=== PATIENT | male | born 1975 | race Caucasian/White ===

== ENCOUNTER 2022-01-03 11:37 | Emergency (ER) | payer OTHER ==
[2022-01-03 11:50] VITALS: BP 125/83; PULSE 73; RESP 18; TEMP 98
--- NOTE | 2022-01-03 12:14 | ED ---
General Adult HPI - General Chief complaint: Recheck/Abnormal Lab/Rx Stated complaint: visual disturbance Time Seen by Provider: 01/03/22 12:00 Source: patient, EMS Mode of arrival: EMS Limitations: no limitations - History of Present Illness Initial comments: 46-year-old male presents emergency department from [facility]. States that he was in class today when he began having tunnel vision and flashes of light. States that he was not distressed by the episode because he has had this happen to him multiple times before. He had a mild associated headache. States it is very agitated by the people around him as they were talking and he was trying to focus. He denies any speech deficit. No unilateral numbness or weakness in his body. No history of strokes. States that it has happened to him several times over his lifetime and will spontaneously resolve. States it only lasted approximately 20 minutes. He did not want to be transferred to the hospital however [facility] made him. He arrives and states that his symptoms are completely resolved at this time. Patient requesting discharge back. Review of Systems ROS Statement: Those systems with pertinent positive or pertinent negative responses have been documented in the HPI. ROS Other: All systems not noted in ROS Statement are negative. Past Medical History Past Medical History: No Reported History History of Any Multi-Drug Resistant Organisms: None Reported Past Surgical History: No Surgical Hx Reported Past Psychological History: Anxiety, Depression Smoking Status: Current every day smoker Past Alcohol Use History: Abuse, Daily Past Drug Use History: Marijuana, Methamphetamine General Exam Limitations: no limitations General appearance: alert, in no apparent distress Head exam: Present: atraumatic, normocephalic, normal inspection Eye exam: Present: normal appearance, PERRL, EOMI. Absent: scleral icterus, conjunctival injection, periorbital swelling ENT exam: Present: normal exam, mucous membranes moist Neck exam: Present: normal inspection. Absent: tenderness, meningismus, lymphadenopathy Respiratory exam: Present: normal lung sounds bilaterally. Absent: respiratory distress, wheezes, rales, rhonchi, stridor Cardiovascular Exam: Present: regular rate, normal rhythm, normal heart sounds. Absent: systolic murmur, diastolic murmur, rubs, gallop, clicks GI/Abdominal exam: Present: soft, normal bowel sounds. Absent: distended, tenderness, guarding, rebound, rigid Extremities exam: Present: normal inspection, full ROM, normal capillary refill. Absent: tenderness, pedal edema, joint swelling, calf tenderness Back exam: Present: normal inspection Neurological exam: Present: alert, oriented X3, CN II-XII intact Psychiatric exam: Present: normal affect, normal mood Skin exam: Present: warm, dry, intact, normal color. Absent: rash Course Vital Signs 01/03/22 11:44 Temperature 98.0 F Pulse Rate 73 Respiratory 18 Rate Blood Pressure 125/83 O2 Sat by Pulse 95 Oximetry Medical Decision Making - Medical Decision Making Upon arrival patient is placed in room 23. There are history and physical exam was performed. NIH is assessed and is 0. Patient has no symptoms at this time. I did recommend laboratory studies and imaging the patient's brain. He refused stating that he has had this several times before in his life time and is not concerning to him. He is awake, alert and capable is making his own decisions. Patient wants to be discharged back to [facility]. He is to follow-up with his primary care doctor in regards to symptoms return for any new or worsening symptoms. Patient agreeable and discharged home in stable condition Disposition Clinical Impression: Visual disturbance Disposition: HOME SELF-CARE Condition: Stable Instructions (If sedation given, give patient instructions): Visual Floaters (ED) Additional Instructions: Please follow-up with your primary care doctor for further evaluation of these symptoms. Please return for any new or worsening symptoms Is patient prescribed a controlled substance at d/c from ED?: No Referrals: None,Stated [Primary Care Provider] - 1-2 days Time of Disposition: 12:14
== END 2022-01-03 12:28 | disposition home or self-care (01) ==
LOC: EC 11:37
DX: H53.9 Unspecified visual disturbance (principal); F41.9 Anxiety disorder, unspecified; F32.A Depression, unspecified; F17.200 Nicotine dependence, unspecified, uncomplicated; F12.90 Cannabis use, unspecified, uncomplicated
CPT/HCPCS: 99284

== ENCOUNTER 2024-02-20 17:17 | Observation (INO) | payer OTHER ==
--- NOTE | 2024-02-20 17:26 | ED ---
Seizure HPI - General Chief Complaint: Seizure Stated Complaint: Seizure Time Seen by Provider: 02/20/24 17:23 Source: patient, RN notes reviewed, old records reviewed Mode of arrival: EMS Limitations: no limitations - History of Present Illness Initial Comments: This is a 48-year-old male to the ER for evaluation patient presents today for withdrawal seizures alcohol withdrawal medication withdrawal patient presents from [place] for seizure activity 2 minutes of his seizure with history of alcohol withdrawal seizures. MD Complaint: seizure, possible seizure -: days(s) Description of Episode: loss of consciousness, tonic-clonic movement -: second(s) Witnessed: yes - by bystander Trauma: Yes Seizure History: none Place: home Possible Precipitating Event: none Associated Symptoms: denies other symptoms - Related Data Home Medications Medication Instructions Recorded Confirmed Acetaminophen Tab [Tylenol] 1,000 mg PO BID 02/20/24 02/20/24 Mirtazapine [Remeron] 15 mg PO HS 02/20/24 02/20/24 Thiamine [Vitamin B-1] 100 mg PO DAILY 02/20/24 02/20/24 busPIRone HCL [Buspar] 30 mg PO HS 02/20/24 02/20/24 cloNIDine HCL [Catapres] 0.1 mg PO BID 02/20/24 02/20/24 Previous Rx's Medication Instructions Recorded Ibuprofen [Motrin] 800 mg PO BID PRN 3 Days #0 02/21/24 levETIRAcetam [Keppra] 500 mg PO Q12HR #60 tab 02/21/24 Allergies Allergy/AdvReac Type Severity Reaction Status Date / Time No Known Allergies Allergy Verified 02/20/24 17:25 Review of Systems ROS Statement: Those systems with pertinent positive or pertinent negative responses have been documented in the HPI. ROS Other: All systems not noted in ROS Statement are negative. Past Medical History Past Medical History: Seizure Disorder Additional Past Medical History / Comment(s): detoxing seizures History of Any Multi-Drug Resistant Organisms: None Reported Past Surgical History: No Surgical Hx Reported Past Psychological History: Anxiety, Depression Smoking Status: Current every day smoker Past Alcohol Use History: Abuse, Daily Past Drug Use History: Marijuana, Methamphetamine General Exam Limitations: no limitations General appearance: alert, in no apparent distress, anxious Head exam: Present: atraumatic, normocephalic, normal inspection Eye exam: Present: normal appearance, PERRL, EOMI. Absent: scleral icterus, conjunctival injection, periorbital swelling ENT exam: Present: normal exam, mucous membranes moist Neck exam: Present: normal inspection. Absent: tenderness, meningismus, lymphadenopathy Respiratory exam: Present: normal lung sounds bilaterally. Absent: respiratory distress, wheezes, rales, rhonchi, stridor Cardiovascular Exam: Present: regular rate, normal rhythm, normal heart sounds. Absent: systolic murmur, diastolic murmur, rubs, gallop, clicks GI/Abdominal exam: Present: soft, normal bowel sounds. Absent: distended, tenderness, guarding, rebound, rigid Extremities exam: Present: normal inspection, full ROM, normal capillary refill. Absent: tenderness, pedal edema, joint swelling, calf tenderness Back exam: Present: normal inspection Neurological exam: Present: alert, oriented X3, CN II-XII intact Psychiatric exam: Present: normal affect, normal mood Skin exam: Present: warm, dry, intact, normal color. Absent: rash Course Vital Signs 02/20/24 02/20/24 02/20/24 17:18 18:42 19:37 Temperature 98.8 F Pulse Rate 90 89 87 Respiratory 18 18 18 Rate Blood Pressure 136/105 117/96 124/92 O2 Sat by Pulse 100 97 99 Oximetry 02/20/24 02/20/24 02/21/24 21:51 23:28 02:18 Temperature Pulse Rate 72 65 73 Respiratory 16 16 18 Rate Blood Pressure 120/94 119/93 117/80 O2 Sat by Pulse 98 98 99 Oximetry 02/21/24 02/21/24 05:00 08:27 Temperature Pulse Rate 75 79 Respiratory 16 16 Rate Blood Pressure 126/87 127/96 O2 Sat by Pulse 99 99 Oximetry - Reevaluation(s) Reevaluation #1: 02/20/24 17:50 Medical records reviewed Reevaluation #2: 02/20/24 17:50 Patient has no worsening symptoms here in the ER Reevaluation #3: 02/20/24 18:29 Patient informed of results and questions answered Reevaluation #4: Was pt. sent in by a medical professional or institution (, PA, BILLBOARD POSTER, urgent care, hospital, or jail...) When possible be specific @ -no Did you speak to anyone other than the patient for history (EMS, parent, family, police, friend...)? What history was obtained from this source @ -no Did you review nursing and triage notes (agree or disagree)? Why? @ -agree Are old charts reviewed (outside hosp., previous admission, EMS record, old EKG, old radiological studies, urgent care reports/EKG's, jail records)? Report findings @ -yes Differential Diagnosis (chest pain, altered mental status, abdominal pain women, abdominal pain men, vaginal bleeding, weakness, fever, dyspnea, syncope, headache, dizziness, GI bleed, back pain, seizure, CVA, palpatations, mental health, musculoskeletal)? @ -prior EKG interpreted by me (3pts min.). @ -yes X-rays interpreted by me (1pt min.). @ -no CT interpreted by me (1pt min.). @ -no U/S interpreted by me (1pt. min.). @ -no What testing was considered but not performed or refused? (CT, X-rays, U/S, labs)? Why? @ -none What meds were considered but not given or refused? Why? @ -none Did you discuss the management of the patient with other professionals (professionals i.e. , PA, BILLBOARD POSTER, lab, RT, psych nurse, social media manager, manager of construction, teacher, aoc aadc operations staff officer, bottle caser)? Give summary @ -no Was smoking cessation discussed for >3mins.? @ -no Was critical care preformed (if so, how long)? @ -no Were there social determinants of health that impacted care today? How? (Homelessness, low income, unemployed, alcoholism, drug addiction, transportation, low edu. Level, literacy, decrease access to med. care, intermediate, rehab)? @ -none Was there de-escalation of care discussed even if they declined (Discuss DNR or withdrawal of care, Hospice)? DNR status @ -no What co-morbidities impacted this encounter? (DM, HTN, Smoking, COPD, CAD, Cancer, CVA, ARF, Chemo, Hep., AIDS, mental health diagnosis, sleep apnea, morbid obesity)? @ -none Was patient admitted / discharged? Hospital course, mention meds given and route, prescriptions, significant lab abnormalities, going to OR and other pertinent info. @ - 48 male will be admitted for recurrent seizure history of seizures history of withdrawal seizures. Patient had seizure at [place] today and sent to ER for evaluation and treatment Admitted Undiagnosed new problem with uncertain prognosis? @ -no Drug Therapy requiring intensive monitoring for toxicity (Heparin, Nitro, Insulin, Cardizem)? @ -no Were any procedures done? @ -no Diagnosis/symptom? @ -Alcohol withdrawal seizure Acute, or Chronic, or Acute on Chronic? @ -Acute Uncomplicated (without systemic symptoms) or Complicated (systemic symptoms)? @ -Complicated Side effects of treatment? @ -no Exacerbation, Progression, or Severe Exacerbation? @ -exacerbation Poses a threat to life or bodily function? How? (Chest pain, [place], [place], pneumonia, PE, COPD, DKA, ARF, appy, cholecystitis, CVA, Diverticulitis, Homicidal, Suicidal, threat to staff... and all critical care pts) @ -yes withdrawal seizure Reevaluation #5: Differential Seizure: Recurrent seizure disorder, febrile seizure, alcohol withdrawal, stimulants, meningitis, encephalitis, intercranial hemorrhage, intracranial tumor, stroke, eclampsia, thyrotoxicosis, hypocalcemia, hyponatremia, hypernatremia, hypomagnesemia, psychogenic, this is not meant to be an all-inclusive list. - Consultations Consultation #1: Spoke with [facility] who agrees to admit this patient Medical Decision Making - Medical Decision Making 48 male will be admitted for recurrent seizure history of seizures history of withdrawal seizures. Patient had seizure at [place] today and sent to ER for evaluation and treatment - Lab Data Result diagrams: 02/21/24 03:47 02/21/24 03:47 Lab Results 02/20/24 02/20/24 02/20/24 Range/Units 17:36 17:37 17:37 WBC 8.2 (3.8-10.6) k/uL RBC 4.66 (4.30-5.90) m/uL Hgb 14.8 (13.0-17.5) gm/dL Hct 46.8 (39.0-53.0) % MCV 100.4 H (80.0-100.0) fL MCH 31.8 (25.0-35.0) pg MCHC 31.7 (31.0-37.0) g/dL RDW 12.4 (11.5-15.5) % Plt Count 286 (150-450) k/uL MPV 7.1 Neutrophils % 74 % Lymphocytes % 17 % Monocytes % 5 % Eosinophils % 1 % Basophils % 1 % Neutrophils # 6.1 (1.3-7.7) k/uL Lymphocytes # 1.4 (1.0-4.8) k/uL Monocytes # 0.4 (0-1.0) k/uL Eosinophils # 0.1 (0-0.7) k/uL Basophils # 0.1 (0-0.2) k/uL Sodium 142 (137-145) mmol/L Potassium 4.4 (3.5-5.1) mmol/L Chloride 109 H (98-107) mmol/L Carbon Dioxide 21 L (22-30) mmol/L Anion Gap 12 mmol/L BUN 10 (9-20) mg/dL Creatinine 0.70 (0.66-1.25) mg/dL Est GFR (CKD-EPI)AfAm >90 (>60 ml/min/1.73 sqM) Est GFR (CKD-EPI)NonAf >90 (>60 ml/min/1.73 sqM) Glucose 70 L (74-99) mg/dL Calcium 9.4 (8.4-10.2) mg/dL Magnesium 2.1 (1.6-2.3) mg/dL Total Bilirubin 0.5 (0.2-1.3) mg/dL AST 27 (17-59) U/L ALT 27 (4-49) U/L Alkaline Phosphatase 46 (38-126) U/L Total Protein 7.1 (6.3-8.2) g/dL Albumin 4.5 (3.5-5.0) g/dL Urine Color Colorless Urine Appearance Clear (Clear) Urine pH 5.5 (5.0-8.0) Ur Specific [place] 1.016 (1.001-1.035) Urine Protein Trace H (Negative) Urine Glucose (UA) Negative (Negative) Urine Ketones Negative (Negative) Urine Blood Negative (Negative) Urine Nitrite Negative (Negative) Urine Bilirubin Negative (Negative) Urine Urobilinogen <2.0 (<2.0) mg/dL Ur Leukocyte Esterase Negative (Negative) Salicylates <1.0 mg/dL Urine Opiates Screen Not Detected (NotDetected) Ur Oxycodone Screen Not Detected (NotDetected) Urine Methadone Screen Not Detected (NotDetected) Acetaminophen <10.0 ug/mL Ur Barbiturates Screen Not Detected (NotDetected) U Tricyclic Antidepress Not Detected (NotDetected) Ur Phencyclidine Scrn Not Detected (NotDetected) Ur Amphetamines Screen Not Detected (NotDetected) U Methamphetamines Scrn Not Detected (NotDetected) U Benzodiazepines Scrn Detected H (NotDetected) Urine Cocaine Screen Not Detected (NotDetected) U Marijuana (THC) Screen Not Detected (NotDetected) Serum Alcohol <10 mg/dL - EKG Data -: EKG Interpreted by Me (EKG is sinus 89 OH 146 QRS 85 QTc 382) Disposition Clinical Impression: Generalized seizure, Epileptic seizure, generalized Disposition: ADMITTED IP TO THIS [facility] Condition: Fair Is patient prescribed a controlled substance at d/c from ED?: No Time of Disposition: 18:30
[2024-02-20] MEDS ORDERED: LORazepam 1 MG TAB PO PRN ×2 (17:27)
[2024-02-20] MEDS ORDERED: LORazepam 2 MG/ML INJ IV PRN ×2 (17:27)
[2024-02-20] MEDS: SODIUM CHLORIDE 0.9% 1,000 ML IV STA (17:38)
[2024-02-20] MEDS: LORazepam 2 MG/ML INJ IV STA (17:39)
[2024-02-20] MEDS: SODIUM CHLORIDE 0.9% 500 ML 500 ML IV STA (17:39)
[2024-02-20] MEDS: levETIRAcetam IV 500 MG/5 ML VIAL IVP STA (17:39)
[2024-02-20 17:46] LABS: Basophils # (A) 0.1 k/uL (0-0.2); Basophils % (A) 1 %; Eosinophils # (A) 0.1 k/uL (0-0.7); Eosinophils % (A) 1 %; HCT 46.8 % (39.0-53.0); HGB 14.8 gm/dL (13.0-17.5); Lymphocytes # (A) 1.4 k/uL (1.0-4.8); Lymphocytes % (A) 17 %; MCH 31.8 pg (25.0-35.0); MCHC 31.7 g/dL (31.0-37.0); MCV 100.4 fL (80.0-100.0); Mean Platelet Volume 7.1; Monocytes # (A) 0.4 k/uL (0-1.0); Monocytes % (A) 5 %; Neutrophils # (A) 6.1 k/uL (1.3-7.7); Neutrophils % (A) 74 %; Platelet Count 286 k/uL (150-450); RBC 4.66 m/uL (4.30-5.90); RDW 12.4 % (11.5-15.5); WBC 8.2 k/uL (3.8-10.6)
[2024-02-20 17:48] LABS: Appearance,Urine Clear (Clear); Bilirubin,Urine Negative (Negative); Blood,Urine Negative (Negative); Color,Urine Colorless; Glucose,Urine (UA) Negative (Negative); Ketones,Urine Negative (Negative); Leukocyte Esterase,Urine Negative (Negative); Nitrite,Urine Negative (Negative); PH, Urine 5.5 (5.0-8.0); Protein,Urine Trace (Negative); Specific Gravity,Urine 1.016 (1.001-1.035); Urobilinogen,Urine <2.0 mg/dL (<2.0)
[2024-02-20 18:05] LABS: ALT 27 U/L (4-49); Acetaminophen <10.0 ug/mL; African American GFR (CKD) >90 (>60 ml/min/1.73 sqM); Albumin 4.5 g/dL (3.5-5.0); Alcohol <10 mg/dL; Anion Gap 12 mmol/L; Blood Urea Nitrogen 10 mg/dL (9-20); Calcium 9.4 mg/dL (8.4-10.2); Carbon Dioxide 21 mmol/L (22-30); Chloride 109 mmol/L (98-107); Glucose 70 mg/dL (74-99); Non-African American GFR(CKD) >90 (>60 ml/min/1.73 sqM); Salicylate <1.0 mg/dL; Sodium 142 mmol/L (137-145); Total Bilirubin 0.5 mg/dL (0.2-1.3); Total Protein 7.1 g/dL (6.3-8.2)
[2024-02-20 18:06] LABS: Amphetamine Screen,Urine Not Detected (NotDetected); Barbiturate Screen,Urine Not Detected (NotDetected); Benzodiazepines Screen,Urine Detected (NotDetected); Cocaine Screen,Urine Not Detected (NotDetected); Methadone Screen, Urine Not Detected (NotDetected); Opiate Screen,Urine Not Detected (NotDetected); Oxycodone Screen, Urine Not Detected (NotDetected); Phencyclidine Screen,Urine Not Detected (NotDetected); Tricyclic Antidepressant,Urine Not Detected (NotDetected); Urn Cannabinoid Scrn Not Detected (NotDetected)
[2024-02-20 18:13] LABS: AST 27 U/L (17-59); Magnesium 2.1 mg/dL (1.6-2.3); Potassium 4.4 mmol/L (3.5-5.1)
[2024-02-20 18:14] LABS: Alkaline Phosphatase 46 U/L (38-126)
[2024-02-20] MEDS ORDERED: ONDANSETRON 4 MG/2 ML VIAL IVP PRN (18:29)
[2024-02-20] MEDS ORDERED: NALOXONE 0.4 MG/ML 1 ML VIAL IV PRN (18:30)
[2024-02-20] MEDS: SODIUM CHLORIDE 0.9% 1,000 ML IV SCH (18:48)
[2024-02-20] MEDS ORDERED: levETIRAcetam IV 500 MG/5 ML VIAL IVP SCH (21:00)
[2024-02-21] MEDS: LORazepam 0.5 MG TAB PO PRN (01:39)
[2024-02-21] MEDS: LORazepam 1 MG TAB PO PRN (01:48)
[2024-02-21] MEDS: LORazepam 2 MG/ML INJ IV PRN (06:18)
[2024-02-21 06:24] LABS: Glucose,Whole Blood 95 mg/dL (70-110)
[2024-02-21] MEDS: NICOTINE 21MG/24HR PATCH TRANSDERM STA (06:30)
--- NOTE | 2024-02-21 06:44 | P.HPIM ---
History of Present Illness This is a pleasant 48 years old male with past medical history of alcohol use disorder, he was at [facility] for rehab where he developed seizure. Patient states that he felt the seizures coming because he felt jittery and he laid down on the floor, the next thing he remember he is getting into the ambulance As per documents patient had tonic-clonic seizure that lasted about 2 minutes. Associated with confusion after that for unknown period. Patient states also he had another seizure about 1 week ago when he was driving to the hospital to see a friend. Usually he does not have a seizure although sometimes he had alcohol withdrawal seizure but this was a while ago. He was not taking any seizure medication and he does not see neurologist only he sees his PCP which he does not remember his name Currently patient denies any symptoms no headache dizziness weakness numbness, no blurred vision or slurred speech He feels fine and he wants to go to [facility] soon. He denies chest pain dyspnea. No GI/ symptoms He smokes 1 pack/day and he was counseled to quit and he agrees, currently he has nicotine patch He used to drink 1 pint of vodka, last drink was 01/31 about 3 weeks ago He uses marijuana at times Patient denies depression, anxiety, no previous psych history, he is has not seen psychiatrist before. He denies suicidal or homicidal ideation, no visual or auditory hallucination or delusions Vitals are stable Labs unremarkable including CBC, BMP, liver enzymes Urine drug screen is positive for benzodiazepine Serum alcohol less than 10 Salicylate less than 10 EKG showing sinus rhythm at [address]-T changes Patient was started on Keppra and Normal Saline 75 mL/h Patient was admitted with neurology consult Review of Systems Review of systems CONSTITUTIONAL: No fever, no malaise, no fatigue. HEENT: No recent visual problems or hearing problems. Denied any sore throat. CARDIOVASCULAR: No orthopnea, PND, no palpitations, no syncope. PULMONARY: No shortness of breath, no cough, no hemoptysis. GASTROINTESTINAL: No diarrhea, no nausea, no vomiting, no abdominal pain. Normoactive bowel sounds. NEUROLOGICAL: No headaches, no weakness, no numbness. HEMATOLOGICAL: Denies any bleeding or petechiae. GENITOURINARY: Denies any burning micturition, frequency, or urgency. MUSCULOSKELETAL/RHEUMATOLOGICAL: Denies any joint pain, swelling, or any muscle pain. ENDOCRINE: Denies any polyuria or polydipsia. Past Medical History Past Medical History: Seizure Disorder Additional Past Medical History / Comment(s): detoxing seizures History of Any Multi-Drug Resistant Organisms: None Reported Past Surgical History: No Surgical Hx Reported Past Psychological History: Anxiety, Depression Smoking Status: Current every day smoker Past Alcohol Use History: Abuse, Daily Past Drug Use History: Marijuana, Methamphetamine Medications and Allergies Home Medications Medication Instructions Recorded Confirmed Type Acetaminophen Tab [Tylenol Tab] 1,000 mg PO BID 02/20/24 02/20/24 History Ibuprofen [Motrin] 800 mg PO BID 02/20/24 02/20/24 History Mirtazapine [Remeron] 15 mg PO HS 02/20/24 02/20/24 History Thiamine [Vitamin B-1] 100 mg PO DAILY 02/20/24 02/20/24 History busPIRone HCL [Buspar] 30 mg PO HS 02/20/24 02/20/24 History cloNIDine HCL [Catapres] 0.1 mg PO BID 02/20/24 02/20/24 History Allergies Allergy/AdvReac Type Severity Reaction Status Date / Time No Known Allergies Allergy Verified 02/20/24 17:25 Physical Exam Vitals: Vital Signs Temp Pulse Resp BP Pulse Ox 02/21/24 05:00 75 16 126/87 99 02/21/24 02:18 73 18 117/80 99 02/20/24 23:28 65 16 119/93 98 02/20/24 21:51 72 16 120/94 98 02/20/24 19:37 87 18 124/92 99 02/20/24 18:42 89 18 117/96 97 02/20/24 17:18 98.8 F 90 18 136/105 100 Intake and Output 02/20/24 02/20/24 02/21/24 14:59 22:59 06:59 Other: Weight 74.843 kg GENERAL: The patient is alert and oriented x3, not in any acute distress. Well developed, well nourished. HEENT: Pupils are round and equally reacting to light. EOMI. No scleral icterus. No conjunctival pallor. Normocephalic, atraumatic. No pharyngeal erythema. No thyromegaly. CARDIOVASCULAR: S1 and S2 present. No murmurs, rubs, or gallops. PULMONARY: Chest is clear to auscultation, no wheezing , no crackles. ABDOMEN: Soft, nontender, nondistended, normoactive bowel sounds. No palpable organomegaly. MUSCULOSKELETAL: No joint swelling or deformity. EXTREMITIES: No cyanosis, clubbing, or pedal edema. NEUROLOGICAL: Gross neurological examination did not reveal any focal deficits. SKIN: No rashes. no petechiae. Results CBC & Chem 7: 02/20/24 17:37 02/20/24 17:37 Labs: Abnormal Lab Results - Last 24 Hours (Table) 02/20/24 02/20/24 02/20/24 Range/Units 17:36 17:37 17:37 MCV 100.4 H (80.0-100.0) fL Chloride 109 H (98-107) mmol/L Carbon Dioxide 21 L (22-30) mmol/L Glucose 70 L (74-99) mg/dL Urine Protein Trace H (Negative) U Benzodiazepines Scrn Detected H (NotDetected) Assessment and Plan Assessment: 2 episodes of seizure, with recent history of quitting alcohol about 3 weeks earlier. Alcohol use disorder, going through rehab for withdrawal treatment and dependence treatment Nicotine dependence Substance abuse with marijuana Anxiety/depression, mild. Not an active issue Plan: Patient started on Kera Follow-up neurology recommendation Resume home medication Patient wants to go back to [facility] upon discharge Further recommendation based on the clinical course GI prophylaxis Pepcid DVT prophylaxis subcu heparin
[2024-02-21] MEDS: levETIRAcetam IV 500 MG/5 ML VIAL IVP SCH (08:35)
[2024-02-21 09:19] LABS: Basophils % (A) 1.3 %; Eosinophils # (A) 0.19 X 10*3/uL (0.04-0.35); Eosinophils % (A) 2.5 %; HCT 40.2 % (39.6-50.0); HGB 13.2 g/dL (13.0-17.0); Lymphocytes # (A) 2.03 X 10*3/uL (0.90-5.00); Lymphocytes % (A) 26.7 %; MCH 32.8 pg (27.0-32.0); MCHC 32.8 g/dL (32.0-37.0); Mean Platelet Volume 9.6 FL (9.5-12.2); Monocytes # (A) 0.62 X 10*3/uL (0.20-1.00); Monocytes % (A) 8.1 %; NRBC Per 100 WBC 0 X 10*3/uL (0.00-0.01); Neutrophils # (A) 4.65 X 10*3/uL (1.80-7.70); Neutrophils % (A) 61.1 %; Platelet Count 235 X 10*3/uL (140-440); RBC 4.02 X 10*6/uL (4.40-5.60); RDW 12.4 % (11.5-14.5); WBC 7.61 X 10*3/uL (4.50-10.00)
[2024-02-21 09:31] LABS: ALT 22 U/L (10-49); AST 19 U/L (14-35); Albumin 3.8 g/dL (3.8-4.9); Alkaline Phosphatase 64 U/L (41-126); BUN/Creat Ratio 10.11 Ratio (12.00-20.00); Blood Urea Nitrogen 9.1 mg/dL (9.0-27.0); Calcium 8.4 mg/dL (8.7-10.3); Carbon Dioxide 24.9 mmol/L (21.6-31.8); Chloride 107 mmol/L (96-109); Glucose 87 mg/dL (70-110); Magnesium 1.9 mg/dL (1.5-2.4); Potassium 3.5 mmol/L (3.5-5.5); Sodium 142 mmol/L (135-145); Total Bilirubin <0.2 mg/dL (0.3-1.2); Total Protein 5.8 g/dL (6.2-8.2)
--- NOTE | 2024-02-21 09:55 | CT ---
EXAMINATION TYPE: CT brain wo con DATE OF EXAM: 02/21/2024 COMPARISON: None INDICATION: Seizure DLP: 1154.4 mGycm, Automated exposure control for dose reduction was used. CONTRAST: None CT of the brain is performed utilizing 3 mm thick sections through the posterior fossa and 3 mm thick sections through the remaining calvarium. Study is performed within 24 hours of arrival to the hosp [facility]. No abnormal hyperdensity is present to suggest an acute intracranial hemorrhage. No mass lesion is evident. No acute infarcts are evident. Ventricles and sulci are appropriate for the patient age. Paranasal sinuses and mastoid air cells within the [id number] are clear. IMPRESSION: 1. No acute intracranial process. Follow up MRI can be performed as clinically indicated. [facility], , 02/21/2024 9:53 AM
--- NOTE | 2024-02-21 16:14 | P.CNNES ---
History of Present Illness Consult date: 02/21/24 Requesting physician: Jono Mary Reason for Consult: seizure History of Present Illness: This is a 48-year-old gentleman with history of alcohol withdrawal seizure, significant alcohol use, tobacco use who presented emergency department from [place] for concern for seizure. According to the patient yesterday he went for [facility] for because of his alcohol use. He states yesterday when he was at [facility] he felt head was fuzzy and felt his body was about to shake and he did not feel well so he laid down but denies passing out and he was able to hear all the conversation. The episode lasted for few minutes. He denies any tongue bite, urinary incontinence or bowel incontinence. Again he stated that he was aware of the conversations during this episode and he denies passing out. He states that he had similar episodes in the past when he stopped drinking alcohol. He stated that his last drink was he thinks was February 01, 2024 but he was on BuSpar lithium. Denies any history of seizures when he has been off of alcohol for more than a month or more. Denies any history of seizur e as a child. Denies any family history of seizure that he recalls. He feels back to baseline. He states that he drinks about a pint to a pint and a half a day. He also smokes 1 pack a day. Currently he denies any headache, any focal weakness any headache nausea vomiting. He feels back to baseline. Some of the workup during this hospital visit consisted of: Sodium is 142, glucose is 70 on presentation and repeated is 87, calcium 9.4, phosphorus is 3.0, magnesium is 2.1 AST ALT is within normal limits Urine Drug screen is positive for benzos. Otherwise rest is nondetected. CT head: It is reported as no acute intracranial process. I personally reviewed the CT and agree with the report. Review of Systems The positive and negative as per HPI. Past Medical History Past Medical History: Seizure Disorder Additional Past Medical History / Comment(s): detoxing seizures History of Any Multi-Drug Resistant Organisms: None Reported Past Surgical History: No Surgical Hx Reported Past Psychological History: Anxiety, Depression Smoking Status: Current every day smoker Past Alcohol Use History: Abuse, Daily Past Drug Use History: Marijuana, Methamphetamine Medications and Allergies Home Medications Medication Instructions Recorded Confirmed Type Acetaminophen Tab [Tylenol] 1,000 mg PO BID 02/20/24 02/20/24 History Mirtazapine [Remeron] 15 mg PO HS 02/20/24 02/20/24 History Thiamine [Vitamin B-1] 100 mg PO DAILY 02/20/24 02/20/24 History busPIRone HCL [Buspar] 30 mg PO HS 02/20/24 02/20/24 History cloNIDine HCL [Catapres] 0.1 mg PO BID 02/20/24 02/20/24 History Ibuprofen [Motrin] 800 mg PO BID PRN 3 Days #0 02/21/24 02/20/24 Rx Allergies Allergy/AdvReac Type Severity Reaction Status Date / Time No Known Allergies Allergy Verified 02/20/24 17:25 Physical Examination - Vital Signs Vital Signs: Vital Signs Temp Pulse Resp BP Pulse Ox 02/21/24 08:27 79 16 127/96 99 02/21/24 05:00 75 16 126/87 99 02/21/24 02:18 73 18 117/80 99 02/20/24 23:28 65 16 119/93 98 02/20/24 21:51 72 16 120/94 98 02/20/24 19:37 87 18 124/92 99 02/20/24 18:42 89 18 117/96 97 02/20/24 17:18 98.8 F 90 18 136/105 100 GENERAL: The patient is lying in bed and is not in acute distress. Higher mental function: The patient is awake, alert, oriented to self, place and time. Patient is following commands. No aphasia and no neglect. Cranial nerves: The pupils are round, equal and reactive to light and accommodation. Visual mc are full to confrontation throughout. Extraocular movement is intact no nystagmus is noted. Facial sensation is normal to touch throughout. The facial strength is normal throughout. Hearing is normal bilaterally to hand rub. Tongue is midline and moved [id number] without any difficulty. No dysarthria is noted. Shoulder shrug is normal bilaterally. Motor: Gait is normal. The strength is 5 over 5 throughout. Normal tone and bulk. Cerebellum: Normal finger to nose heel to chaparro bilaterally. Sensation: Sensation is normal to touch throughout. Reflexes (right/left): 2+ throughout. Plantars are downgoing bilaterally. Results - Laboratory Findings CBC and BMP: 02/21/24 03:47 02/21/24 03:47 Abnormal Lab Findings: Abnormal Labs 02/20/24 02/20/24 02/20/24 17:36 17:37 17:37 RBC MCV 100.4 H MCH Chloride 109 H Carbon Dioxide 21 L BUN/Creatinine Ratio Glucose 70 L Calcium Total Bilirubin Total Protein Urine Protein Trace H U Benzodiazepines Scrn Detected H 02/21/24 02/21/24 03:47 03:47 RBC 4.02 L MCV 100.0 H MCH 32.8 H Chloride Carbon Dioxide BUN/Creatinine Ratio 10.11 L Glucose Calcium 8.4 L Total Bilirubin <0.2 L Total Protein 5.8 L Urine Protein U Benzodiazepines Scrn Assessment and Plan Assessment: A 48-year-old gentleman with history of alcohol withdrawal seizure, significant alcohol use, tobacco use who yesterday went to [place] and that while at [place] he felt off he felt his head was fuzzy and body was shaking as a result he placed himself down on the floor but denies passing out. It reported that episode lasted for 2 minutes. There is a concern that he had seizure-like activity at [place] therefore he he presented to our facility for further workup. He stated his last drink was on February 01, 2024. Breakthrough seizure: Unsure exact etiology does not appear alcohol withdrawal since his last drink was on February 01, 2024 which is a prolonged time for withdrawal seizure. Unsure if patient truly has epileptic seizure in addition to alcohol withdrawal seizure. So unsure if patient is going through withdrawal from the medication that he received recently and he is unsure if he was on benzos but does not appear that way it seems that he was given Ativan in our facility History of alcohol withdrawal seizure Significant alcohol use Tobacco use Plan: Was given Keppra 1 g once in the ED then was started on Keppra 500 mg every 12 hours. I recommend the Keppra to be continued and for the patient to follow-up with the outpatient neurologist and repeat EEG as an outpatient to assess if the patient truly has any discharges or seizure and I will defer modification of the medication to his outpatient neurologist. His current EEG prelminary is negative for any seizure Seizure precautions seizure pads Per the [facility] because of the seizure, to avoid driving for 6 months until seizure-free, avoid heights, avoid swimming assisted or using heavy machinery His CT of the head is negative. Recommend outpatient MRI of the brain seizure protocol. Patient was counseled on tobacco cessation as well as alcohol cessation Started patient on thiamine 100 mg daily. Will defer the rest of the medical management to primary and other specialist Plan discussed with the patient and the primary attending. There is no further neurological workup. Will sign off. Please reconsult if needed. Thank you for the consultation. Time with Patient: Greater than 30
[2024-02-21] MEDS: levETIRAcetam 500 MG TAB PO ONE (18:12)
[2024-02-21] MEDS: THIAMINE 100 MG TAB PO SCH (18:53)
[2024-02-21 19:13] VITALS: BP 137/97; PULSE 91; RESP 18; TEMP 98.3
--- NOTE | 2024-02-22 14:52 | EEG ---
ELECTROENCEPHALOGRAM REPORT CLINICAL HISTORY: This is a 48-year-old gentleman with history of alcohol withdrawal seizure, alcohol use with suspected seizure-like activity. The video EEG is obtained to evaluate for seizure epileptiform activity. RELEVANT MEDICATIONS: 1. Keppra. 2. Ativan. EEG TYPE: This is a routine 21-channel EEG with video using the 10/20 electrode placement system. DESCRIPTION: Wakefulness is only obtained. During awake state, the posterior-dominant rhythm consists of [id number] voltage of about 10 to 11 hertz activity, but are somewhat obscured because of diffuse excessive beta activity. There was no physiological stage 2 sleep architecture. There is no focal slowing. Interictal and ictal is, there appears to be sharply contoured activity over the bilateral temporal region. No clear discharge or seizure on the EEG. ACTIVATION PROCEDURE: Photic stimulation did not evoke a posterior driving response. There is no abnormality during the photic stimulation. Hyperventilation is not performed. CLINICAL INTERPRETATION: This is an abnormal routine EEG. The background is normal. There appears to be suspicion of sharply contoured activity over the bilateral temporal that can increase risk of cortical abnormality. No clear discharges or seizure on the EEG. The diffuse excessive beta activity is likely due to medication effect (Bentyl). Otherwise, there is no clear epileptiform discharge, or seizure. I highly recommend a repeat EEG as an outpatient. Clinical correlation is recommended. MMGUIDOL / NAYELIN: [id number] /
== END 2024-02-21 18:20 | disposition home or self-care (01) ==
LOC: EC 17:17 → 5NMEDONC 18:30 → INTOOBSV 18:30 → 5NMEDONC 20:38 → UNDODISOB 02-21 18:20
PROVIDERS: ADMIT Hospitalist; ATTEND Hospitalist
DX: G40.909 Epilepsy, unspecified, not intractable, without status epilepticus (principal); F10.20 Alcohol dependence, uncomplicated; F12.10 Cannabis abuse, uncomplicated; F17.210 Nicotine dependence, cigarettes, uncomplicated; F41.9 Anxiety disorder, unspecified; F32.9 Major depressive disorder, single episode, unspecified; Z79.899 Other long term (current) drug therapy; Z79.1 Long term (current) use of non-steroidal anti-inflammatories (NSAID)
CPT/HCPCS: 96376; 96361; 96374; 96375; 99285; 36415; 95816; 93005; 80053 ×2; 83735 ×2; 84100; 85025 ×2; 81003; 80306; 80143; 80179; 70450; G0378 ×2; G0480; S4990; J2060 ×2; J1953 ×2; 80320